=== PATIENT | female | born 1950 | race Caucasian/White ===

== ENCOUNTER 2018-06-29 10:02 | Day surgery (SDC) | payer MEDICARE ==
[2018-06-28 12:30] VITALS: BMI 22.1
[2018-06-29 10:53] LABS: Hemoglobin 12.9 g/dL (12.0-16.0); Mean Corpuscular HGB CONC 33.9 g/dL (32.0-36.0); Mean Corpuscular Hemoglobin 31.5 pg (27.0-31.0); Mean Platelet Volume 6.4 fL (7.4-10.4); Platelet Count 343 thou/uL (130-400); Red Blood Cell (RBC) Count 4.11 mill/uL (4.20-5.40); White Blood Cell (WBC) Count 3.2 thou/uL (4.8-10.8)
[2018-06-29 11:03] LABS: INR-International Normal Ratio 0.9; PTT 26.9 SEC (22.9-36.1); Prothrombin Time 12.6 SEC (12.0-14.7)
[2018-06-29 11:16] LABS: Anion Gap 11 mmol/L (10-20); BUN (Urea Nitrogen) 14 mg/dL (9.8-20.1); Calc. Creatinine Clearance 83 mL/min (70-130); Calcium 9.1 mg/dL (7.8-10.44); Carbon Dioxide 26 mmol/L (23-31); Chloride 103 mmol/L (98-107); Estimated GFR-MDRD 88; Glucose 96 mg/dL (80-115); Potassium 3.9 mmol/L (3.5-5.1); Sodium 136 mmol/L (136-145)
[2018-06-29] MEDS ORDERED: Meperidine HCl/PF 25 MG/ML VIAL ONE (13:12)
[2018-06-29] MEDS ORDERED: Midazolam HCl 2 mg/2 ml Vial ONE ×2 (13:13→13:27)
[2018-06-29] MEDS ORDERED: PROPOFOL 20 ML ONE (13:13)
[2018-06-29] MEDS ORDERED: Heparin 10,000 UNITS/1 ML VIAL ONE (14:01)
[2018-06-29] MEDS ORDERED: Heparin 0 ML ONE (14:01)
[2018-06-29] MEDS ORDERED: Isoproterenol 0.2 MG/1 ML AMP ONE (14:04)
[2018-06-29] MEDS ORDERED: PHENYLEPHRINE-NS 100 MCG/ML 10 ML SYRINGE ONE (14:54)
[2018-06-29] MEDS ORDERED: PROPOFOL 200 MG/20 ML VIAL ONE (14:54)
--- NOTE | 2018-06-29 20:27 | OP ---
REFERRING PHYSICIAN: Fredrick Worley MD REASON FOR PROCEDURE: Mrs. Ning Gonzalez is a 67-year-old woman with history of rapid palpitations back in December 2014. She went to the ER, but by the time, the episode resolved. She had nonsustained arrhythmias only on monitoring. She was started on flecainide and has done reasonably well, but still has occasional short nonsustained episodes. She is considering coming off the flecainide. She would like to find out etiology of her palpitations and possible ablation is considered as well. PROCEDURE: The patient received propofol by Anesthesia specialist. After adequate level of sedation achieved, the left femoral venous area was prepped, draped and anesthetized using subcutaneous lidocaine. Under fluoroscopic guidance, left femoral vein was cannulated x2 and a 6 and 8-[place] short sheath was introduced through which an octapolar and decapolar catheter was advanced to the right ventricle, His bundle, right atrium and CS positions. Pacing mapping and recording was performed in each location with the following findings. Baseline rhythm is sinus rhythm. WI 165 milliseconds, QRS 65 milliseconds, QT 444 milliseconds, AH 112 milliseconds, HV 44 milliseconds. Sinus node recovery time 1500, corrected sinus node recovery time of 300 milliseconds, AV Wenckebach cycle length was 320 milliseconds, retrograde Wenckebach cycle length was 400 milliseconds. AV lisa ERP was 600/240 milliseconds. Ventricular ERP was 400/200 milliseconds on Isuprel. With ventricular rapid pacing, concentric retrograde VA conduction is seen, no evidence of dual AV lisa physiology was observed. The burst of atrial pacing induced no SVT, but short atrial flutter was observed with using multiple different circuits and eventually disintegrating into atrial fibrillation and then self terminating, less than 10 seconds in duration. Following that isuprel was administered up to 5 mcg per minute and a burst atrial stimulation extrastimuli testing with up to 2 extrastimuli in the atrium, up to 3 extrastimuli in the ventricle were repeated. No sustained arrhythmias were noted. The pericardial silhouette did not change throughout the procedure. The patient remained stable. CONCLUSION: 1. No inducible supraventricular tachycardia. 2. No evidence of accessory pathway or dual AV lisa physiology seen. 3. Only short self terminating atrial arrhythmia is seen. PLAN: At this point, continue monitoring. Let us hold the flecainide, but the patient can resume that later if it is necessary. Alternatively, beta blockers or diltiazem also considered. I should she develop more sustained atrial fibrillation with symptoms, she could be a good candidate for pulmonary venous ablation procedure. KSENIA
--- NOTE | 2018-06-30 08:49 | EKG ---
Test Reason : PREOP Blood Pressure : / mmHG Vent. Rate : 061 BPM Atrial Rate : 061 BPM P-R Int : 150 ms QRS Dur : 078 ms QT Int : 410 ms P-R-T Axes : 060 035 056 degrees QTc Int : 412 ms Normal sinus rhythm Normal ECG When compared with ECG of 16-DEC-2014 15:00, Vent. rate has decreased BY [address] no longer depressed in Lateral leads Confirmed by CORNELIA LYON ([id number]) on 06/30/2018 8:49:34 AM Referred By: VIKRAM Confirmed By:CORNELIA LYON
== END 2018-06-29 17:30 | disposition home or self-care (01) ==
LOC: CCL 10:02
PROVIDERS: ATTEND Internal Medicine Cardiovascular Disease
PROC: 4A023FZ Measurement of Cardiac Rhythm, Percutaneous Approach (ICD-10-PCS; principal; 2018-06-29)
PROC: 4A0234Z Measurement of Cardiac Electrical Activity, Percutaneous Approach (ICD-10-PCS; 2018-06-29)
DX: I47.1 Supraventricular tachycardia (principal); I48.92 Unspecified atrial flutter; I48.91 Unspecified atrial fibrillation; I27.20 Pulmonary hypertension, unspecified; Z79.82 Long term (current) use of aspirin; Z79.899 Other long term (current) drug therapy
CPT/HCPCS: 76942; 80048; 85027; 85610; 85730; 93005; 93620; 93623; C1730 ×2; C1769; 93010; J1644; J2175; J2250; J2704

== ENCOUNTER 2023-08-07 13:00 | Emergency (ER) | payer MEDICARE ==
[2023-08-07 14:06] LABS: #Eosinphils 0.1 thou/uL (0.0-0.7); #Monocytes 0.3 thou/uL (0.11-0.59); #Neutrophils 4.1 thou/uL (1.40-6.50); %Basophils 0.7 % (0.0-1.0); %Eosinophils 1.5 % (0.0-10.0); %Lymphocytes 17.1 % (21.0-51.0); %Monocytes 5.3 % (0.0-10.0); %Neutrophils 75.2 % (42.0-75.0); Hematocrit 38.4 % (36.0-47.0); Mean Corpuscular HGB CONC 33.9 g/dL (32.0-36.0); Mean Corpuscular Hemoglobin 30.4 pg (27.0-31.0); Mean Corpuscular Volume 89.9 fl (78.0-98.0); Mean Platelet Volume 9.1 fL (7.4-10.4); Platelet Count 363 10x3/uL (130-400); RBC Distribution Width 12.8 % (11.5-14.5); Red Blood Cell (RBC) Count 4.27 mill/uL (4.20-5.40); White Blood Cell (WBC) Count 5.4 10x3/uL (4.8-10.8)
[2023-08-07] MEDS ORDERED: Acetaminophen 500 MG TAB ONE (14:10)
[2023-08-07] MEDS ORDERED: Metoprolol Tartrate 5 MG/5 ML VIAL ONE (14:11)
[2023-08-07 14:23] LABS: ALT (SGPT) 17 U/L (8-55); AST (SGOT) 24 U/L (5-34); Albumin 4.5 g/dL (3.4-4.8); Alkaline Phosphatase 55 U/L (40-110); Anion Gap 15 mmol/L (10-20); BUN (Urea Nitrogen) 8 mg/dL (9.8-20.1); Bilirubin, Total 0.4 mg/dL (0.2-1.2); Calc. Creatinine Clearance 0 mL/min (70-130); Calcium 9.7 mg/dL (7.8-10.44); Carbon Dioxide 25 mmol/L (23-31); Chloride 102 mmol/L (98-107); Estimated GFR 92; Globulin 2.7 g/dL (2.4-3.5); Glucose 117 mg/dL (83-110); Potassium 4.1 mmol/L (3.5-5.1); Protein, Total 7.2 g/dL (5.8-8.1); Sodium 138 mmol/L (136-145)
[2023-08-07 14:42] LABS: Troponin I Less than 0.010 ng/mL (< 0.028)
== END 2023-08-07 15:26 | disposition home or self-care (01) ==
LOC: ERS 13:00
DX: I10 Essential (primary) hypertension (principal)
CPT/HCPCS: 70450; 71045; 80053; 84484; 85025; 93005; 96374

== ENCOUNTER 2024-06-19 10:12 | Inpatient (IN) | payer MEDICARE, OTHER ==
[2024-06-19] MEDS ORDERED: Metoprolol Tartrate 5 MG (5 mL) VIAL ONE ×2 (10:40→11:55)
[2024-06-19] MEDS ORDERED: Aspirin Chewable 81 MG TAB ONE (10:40)
[2024-06-19 10:54] LABS: #Basophils 0.03 10x3/uL (0.0-0.2); %Basophils 0.5 % (0.0-1.0); %Eosinophils 0.6 % (0.0-10.0); %Monocytes 4.5 % (0.0-10.0); %Neutrophils 82.2 % (42.0-75.0); Hematocrit 38.6 % (36.0-47.0); Mean Corpuscular HGB CONC 33.7 g/dL (32.0-36.0); Mean Corpuscular Hemoglobin 30.5 pg (27.0-31.0); Mean Corpuscular Volume 90.6 fL (78.0-98.0); Mean Platelet Volume 8.7 fL (7.4-10.4); Platelet Count 369 10x3/uL (130-400); RBC Distribution Width 12.7 % (11.5-14.5); Red Blood Cell (RBC) Count 4.26 mill/uL (4.20-5.40)
[2024-06-19 11:17] LABS: ALT (SGPT) 16 U/L (8-55); AST (SGOT) 19 U/L (5-34); Albumin 4.1 g/dL (3.4-4.8); Alkaline Phosphatase 52 U/L (40-110); Anion Gap 13 mmol/L (10-20); BUN (Urea Nitrogen) 11 mg/dL (9.8-20.1); Bilirubin, Total 0.4 mg/dL (0.2-1.2); Calc. Creatinine Clearance 0 mL/min (70-130); Calcium 9.4 mg/dL (7.8-10.44); Carbon Dioxide 25 mmol/L (23-31); Chloride 101 mmol/L (98-107); Estimated GFR 89; Globulin 3.3 g/dL (2.4-3.5); Glucose 141 mg/dL (83-110); Magnesium 1.9 mg/dL (1.6-2.6); Potassium 3.5 mmol/L (3.5-5.1); Protein, Total 7.4 g/dL (5.8-8.1); Sodium 135 mmol/L (136-145)
[2024-06-19 11:29] LABS: Troponin I Less than 0.010 ng/mL (< 0.028)
[2024-06-19] MEDS ORDERED: Nitroglycerin 0.4 MG TAB (25 Tab Bottle) SL PRN (12:02)
[2024-06-19 14:14] VITALS: BMI 21.4
[2024-06-19 14:49] LABS: Troponin I 0.011 ng/mL (< 0.028)
[2024-06-19] MEDS: Famotidine 20 MG TAB PO SCH (20:47)
[2024-06-19] MEDS: Metoprolol Tartrate 25 MG TAB PO SCH (20:48)
[2024-06-19 21:09] LABS: Troponin I 0.012 ng/mL (< 0.028)
[2024-06-20] MEDS ORDERED: Iopamidol 370 76% 100 ML VIAL ONE (09:31)
[2024-06-20] MEDS ORDERED: Regadenoson 0.4 MG/5 ML SYRINGE ONE (10:58)
[2024-06-20] MEDS: Aspirin Chewable 81 MG TAB PO SCH (13:07)
[2024-06-20] MEDS: FLUoxetine HCl 20 MG CAP PO SCH (13:09)
[2024-06-20] MEDS: Enoxaparin 40 MG (0.4 mL) SYRINGE SC SCH (13:10)
[2024-06-20] MEDS: FLU (Fluad Triv) TS24-25 (65UP)/MF59C/PF 45 MCG/0.5 ML Syringe IM ONE (13:15)
[2024-06-20] MEDS: Amlodipine 10 MG TAB PO SCH (13:54)
[2024-06-20] MEDS: Carvedilol 6.25 MG TAB PO SCH (16:26)
[2024-06-20] MEDS: Melatonin 3 MG TAB PO PRN (21:10)
[2024-06-20] MEDS: Acetaminophen 325 MG TAB PO PRN (21:10)
[2024-06-21 04:09] LABS: #Basophils 0.04 10x3/uL (0.0-0.2); %Basophils 0.9 % (0.0-1.0); %Eosinophils 3.4 % (0.0-10.0); %Lymphocytes 34.9 % (21.0-51.0); %Monocytes 10.3 % (0.0-10.0); %Neutrophils 50.3 % (42.0-75.0); Hemoglobin 12.1 g/dL (12.0-16.0); Mean Corpuscular HGB CONC 34.6 g/dL (32.0-36.0); Mean Corpuscular Hemoglobin 30.3 pg (27.0-31.0); Mean Corpuscular Volume 87.5 fL (78.0-98.0); Mean Platelet Volume 8.9 fL (7.4-10.4); Platelet Count 320 10x3/uL (130-400); RBC Distribution Width 12.4 % (11.5-14.5)
[2024-06-21 04:23] LABS: Anion Gap 9 mmol/L (10-20); BUN (Urea Nitrogen) 12 mg/dL (9.8-20.1); Calc. Creatinine Clearance 77 mL/min (70-130); Calcium 8.8 mg/dL (7.8-10.44); Carbon Dioxide 25 mmol/L (23-31); Chloride 97 mmol/L (98-107); Estimated GFR 94; Glucose 99 mg/dL (83-110); Potassium 3.3 mmol/L (3.5-5.1); Sodium 128 mmol/L (136-145)
[2024-06-21 04:46] LABS: Free T4 (Free Thyroxine) 0.96 ng/dL (0.70-1.48); Thyroid Stimulating Hormone 1.126 uIU/mL (0.35-4.94)
[2024-06-21] MEDS: FLUoxetine HCl 20 MG CAP PO SCH (08:50)
[2024-06-21] MEDS: Calcium Carbonate 600 MG + Vit D TAB PO SCH (08:50)
[2024-06-21] MEDS: Multivitamin W/ Minerals 1 TAB PO SCH (08:51)
[2024-06-21] MEDS: Amlodipine 10 MG TAB PO SCH (08:51)
[2024-06-21] MEDS: Pantoprazole DR 40 MG TAB PO SCH (08:51)
[2024-06-21] MEDS: Cyanocobalamin (Vitamin B-12) 1,000 MCG TAB PO SCH (08:51)
[2024-06-21] MEDS: [UNRECOGNIZED DRUG - OTHER] PO SCH (08:52)
[2024-06-21] MEDS: Potassium Chloride 20 MEQ TAB PO SCH (16:18)
[2024-06-21] MEDS: Labetalol HCl 100 MG/20 ML VIAL SLOW IVP PRN (17:33)
[2024-06-21] MEDS: Ondansetron ORAL SOLN. 4 MG/5 ML UDCUP PO PRN (18:05)
[2024-06-22 04:30] LABS: #Basophils 0.03 10x3/uL (0.0-0.2); %Basophils 0.6 % (0.0-1.0); %Eosinophils 1.5 % (0.0-10.0); %Lymphocytes 26.2 % (21.0-51.0); %Monocytes 10.3 % (0.0-10.0); Hematocrit 34.4 % (36.0-47.0); Hemoglobin 12.1 g/dL (12.0-16.0); Mean Corpuscular HGB CONC 35.2 g/dL (32.0-36.0); Mean Corpuscular Hemoglobin 30.6 pg (27.0-31.0); Mean Corpuscular Volume 87.1 fL (78.0-98.0); Mean Platelet Volume 8.9 fL (7.4-10.4); Platelet Count 334 10x3/uL (130-400); RBC Distribution Width 11.9 % (11.5-14.5); Red Blood Cell (RBC) Count 3.95 mill/uL (4.20-5.40)
[2024-06-22 04:50] LABS: Anion Gap 13 mmol/L (10-20); BUN (Urea Nitrogen) 7 mg/dL (9.8-20.1); Calc. Creatinine Clearance 82 mL/min (70-130); Calcium 9.1 mg/dL (7.8-10.44); Carbon Dioxide 21 mmol/L (23-31); Chloride 96 mmol/L (98-107); Estimated GFR 95; Glucose 109 mg/dL (83-110); Potassium 3.6 mmol/L (3.5-5.1); Sodium 126 mmol/L (136-145)
[2024-06-22 10:20] LABS: Bacteria/HPF None Seen HPF (None Seen); Bilirubin Negative (Negative); Blood, Urine 1+ (Negative); Clarity Clear (Clear); Glucose, Urine (Dipstick) Normal (Negative); Ketone, Urine 20 mg/dL (Negative); Leukocyte 25 Leu/uL (Negative); Nitrite Negative (Negative); Protein, Urine (Dipstick) Negative (Neg-Trace); Specific Gravity, Urine 1.004 (1.002-1.036); Squamous Epithelial 0-3 HPF (0-3); Urobilinogen Normal mg/dL (Less than 2); WBC/HPF 0-3 HPF (0-3)
[2024-06-22 10:34] LABS: Creatinine, Urine 79.7 mg/dL (47-110)
[2024-06-22] MEDS: Acetaminophen 500 MG TAB PO PRN (10:34)
[2024-06-22] MEDS: Ondansetron ODT 4 MG TAB PO PRN (14:38)
[2024-06-23 06:31] LABS: #Basophils 0.03 10x3/uL (0.0-0.2); %Basophils 0.6 % (0.0-1.0); %Eosinophils 2.7 % (0.0-10.0); %Lymphocytes 24.8 % (21.0-51.0); %Neutrophils 62.5 % (42.0-75.0); Hematocrit 39.6 % (36.0-47.0); Hemoglobin 13.5 g/dL (12.0-16.0); Mean Corpuscular HGB CONC 34.1 g/dL (32.0-36.0); Mean Corpuscular Hemoglobin 30.2 pg (27.0-31.0); Mean Corpuscular Volume 88.6 fL (78.0-98.0); Mean Platelet Volume 8.9 fL (7.4-10.4); Platelet Count 425 10x3/uL (130-400); RBC Distribution Width 12.4 % (11.5-14.5); Red Blood Cell (RBC) Count 4.47 mill/uL (4.20-5.40)
[2024-06-23 06:49] LABS: Anion Gap 14 mmol/L (10-20); BUN (Urea Nitrogen) 10 mg/dL (9.8-20.1); Calc. Creatinine Clearance 65 mL/min (70-130); Calcium 9.6 mg/dL (7.8-10.44); Carbon Dioxide 22 mmol/L (23-31); Chloride 95 mmol/L (98-107); Estimated GFR 83; Glucose 101 mg/dL (83-110); Potassium 3.8 mmol/L (3.5-5.1); Sodium 127 mmol/L (136-145)
[2024-06-23] MEDS: Carvedilol 25 MG TAB PO SCH ×2 (08:55→16:39)
[2024-06-23] MEDS: Lisinopril 10 MG TAB PO SCH (08:56)
[2024-06-23] MEDS: Polyethylene Glycol 3350 17 GM Packet PO PRN (18:45)
[2024-06-24] MEDS: diphenhydrAMINE 25 MG CAP PO SCH (02:12)
[2024-06-24 05:29] LABS: #Basophils 0.03 10x3/uL (0.0-0.2); %Basophils 0.5 % (0.0-1.0); %Eosinophils 3.5 % (0.0-10.0); %Lymphocytes 27.5 % (21.0-51.0); %Monocytes 11.1 % (0.0-10.0); %Neutrophils 56.7 % (42.0-75.0); Hematocrit 33.8 % (36.0-47.0); Hemoglobin 11.7 g/dL (12.0-16.0); Mean Corpuscular HGB CONC 34.6 g/dL (32.0-36.0); Mean Corpuscular Hemoglobin 30.8 pg (27.0-31.0); Mean Corpuscular Volume 88.9 fL (78.0-98.0); Platelet Count 341 10x3/uL (130-400); RBC Distribution Width 12.7 % (11.5-14.5)
[2024-06-24 05:46] LABS: Anion Gap 12 mmol/L (10-20); BUN (Urea Nitrogen) 11 mg/dL (9.8-20.1); Calc. Creatinine Clearance 72 mL/min (70-130); Carbon Dioxide 24 mmol/L (23-31); Chloride 99 mmol/L (98-107); Estimated GFR 92; Glucose 96 mg/dL (83-110); Potassium 3.7 mmol/L (3.5-5.1); Sodium 131 mmol/L (136-145)
[2024-06-24 11:18] VITALS: BP 104/52; TEMP 97.7
[2024-06-24] MEDS ORDERED: Carvedilol 25 MG TAB PO SCH ×2 (11:30→17:00)
[2024-06-24] MEDS ORDERED: Lisinopril 10 MG TAB PO SCH (11:30)
[2024-06-25] MEDS ORDERED: Lisinopril 10 MG TAB PO SCH (09:00)
[2024-06-26 09:17] LABS: Metanephrine,Ur 94 ug/L (Undefined); Metanephrines Total-24H 150 ug/24 hr (36-209); Normetanephrine,Ur 179 ug/L (Undefined); Normetanephrines-24H U 286 ug/24 hr (131-612)
== END 2024-06-24 14:36 | disposition home or self-care (01) | DRG 880 ==
LOC: ERS 10:12 → SUATTDRO 10:12 → 2NO 12:00 → OBSVTOIN 06-20 13:42
PROVIDERS: ADMIT Internal Medicine; ATTEND Hospitalist
DX: F41.9 Anxiety disorder, unspecified (principal); E87.1 Hypo-osmolality and hyponatremia; I10 Essential (primary) hypertension; R00.0 Tachycardia, unspecified; F32.A Depression, unspecified; Z90.710 Acquired absence of both cervix and uterus; Z90.49 Acquired absence of other specified parts of digestive tract; Z87.891 Personal history of nicotine dependence; Z79.82 Long term (current) use of aspirin; Z79.899 Other long term (current) drug therapy; Z79.01 Long term (current) use of anticoagulants
CPT/HCPCS: 36415; 36416; 71045; 74178; 76770; 78452; 80048; 80053; 81001; 82088; 82533; 82570; 83735; 83835; 83930; 83935; 84244; 84300; 84439; 84443; 84484; 84550; 85025; 93005; 93017; 93975; 94760; 96372; 96374; 96376; A9500; G0378; J1650; J2785; Q0162; Q9967